=== PATIENT | female | born 1980 | race Two or more races ===

== ENCOUNTER 2021-04-27 04:59 | Outpatient (CLI) | payer OTHER ==
[~2021-04-27 04:59] MED LIST: CATAFLAM50 MG; COZAAR25 MG; KETO10TA2 PO; MEDROL4 MG PO; MILK OF MA400 MG/5 M PO; NEURONTIN300 MG; ORPH100T; ORPH100T PO; TORADOL15 MG IM
== END 2021-04-27 14:54 | disposition home or self-care (01) ==
LOC: OBS/DEL 04:59
PROVIDERS: ATTEND Obstetrics & Gynecology
DX: O11.3 Pre-existing hypertension with pre-eclampsia, third trimester (principal); Z3A.35 35 weeks gestation of pregnancy

== ENCOUNTER 2021-05-04 14:16 | Inpatient (IN) | payer OTHER ==
[~2021-05-04] VITALS: Ht 157.5 cm; Wt 107.0 kg
[2021-05-05] MEDS ORDERED: ALDOMET250 MG/5 M PO (13:34)
[2021-05-06] MEDS ORDERED: CORTISPORIN EAR10 M1 (15:53)
[2021-05-06] MEDS ORDERED: SYNTHROID75 MCG (15:53)
== END 2021-05-12 16:51 | disposition home or self-care (01) | DRG 787 ==
LOC: OBS/DEL 14:16 → LDR 05-05 10:25 → OB/GYN 05-05 10:25
PROVIDERS: ADMIT Obstetrics & Gynecology; ATTEND Obstetrics & Gynecology
PROC: BY4FZZZ Ultrasonography of Third Trimester, Single Fetus (ICD-10-PCS; 2021-05-05)
PROC: 4A1HXFZ Monitoring of Products of Conception, Cardiac Rhythm, External Approach (ICD-10-PCS; 2021-05-09)
PROC: 10D00Z1 Extraction of Products of Conception, Low, Open Approach (ICD-10-PCS; principal; 2021-05-09 18:00)
DX: O10.02 Pre-existing essential hypertension complicating childbirth (principal); O41.03X0 Oligohydramnios, third trimester, not applicable or unspecified; O24.420 Gestational diabetes mellitus in childbirth, diet controlled; O99.284 Endocrine, nutritional and metabolic diseases complicating childbirth; E03.9 Hypothyroidism, unspecified; Z37.0 Single live birth; Z3A.37 37 weeks gestation of pregnancy